=== PATIENT | female | born 1930 | race Caucasian/White ===

== ENCOUNTER 2017-12-12 08:20 | Inpatient (IN) | payer MEDICARE, OTHER ==
[~2017-12-12] VITALS: Ht 152.4 cm; Wt 53.2 kg
--- NOTE | ~2017-12-12 | OP ---
PATIENT NAME: MARIETTA JAY MEDICAL RECORD: [id number] :30 LOCATION:D.M2 D.2116 ADMISSION DATE:12/12/17 SURGEON: ELIO EUGENE MD DATE OF OPERATION: 12/13/2017 PROCEDURE: Left heart catheterization, selective coronary angiography, right femoral artery approach. We attempted radial; however, due to radial loop, unable to use this. FINDINGS: Left ventriculography, 30-degree HINDS view shows normal wall motion, normal systolic function. CORONARY ANATOMY: LEFT MAIN: The left main is free of disease. LAD: LAD is a medium to small LAD, not quite reaching the apex, about 70% stenosis in the proximal portion. CIRCUMFLEX: Ostium forked radial artery with a complex plaque at the large OM. This is a left dominant system with the circumflex being the largest vessel. RIGHT CORONARY ARTERY: Rudimentary. PLAN: Intervention of circumflex momentarily. DESCRIPTION OF PROCEDURE: A 5-South Sudanese sheath was exchanged for 6-South Sudanese sheath. EBU 3.5 guiding catheter gave good guide support. Following this, a 300-cm Whisper wire was placed across tightly occluded circumflex. We then placed a 3.0 x 50 mm [place] balloon and using this as an exchange catheter, placed a PT extra support wire. Next, predeployment balloon was used up to 12 atmospheres up and down diffuse stenosis. Stent deployed was a 3.0 x 18 mm Integrity nondrug-eluting stent up to 14 atmospheres. Final angiography shows excellent resolution of a 90% subtotal stenosis, no significant residual. BOSTON flow was 3 throughout the procedure. Integrilin was used during the case. Sheath was closed with ExoSeal device. Plavix was loaded in the lab. TRANSINT:[id number] Voice Confirmation ID: [id number] DOCUMENT ID: [id number] ELIO EUGENE MD at 1359 CC: [id number] DICTATION DATE: 12/13/17 1034 DRIER ATTENDANT: 12/13/17 1136 DIS IN 12/14/17 [facility] [address] [facility], [facility]
--- NOTE | ~2017-12-12 | HP ---
PATIENT: MARIETTA MIDDLETON MEDICAL RECORD: [id number] ACCOUNT: [id number] LOCATION:[address] : 30 ADMISSION DATE: 12/12/17 HISTORY AND PHYSICAL EXAMINATION HISTORY OF PRESENT ILLNESS: Marietta Middleton is an 87-year-old lady with no known history of coronary artery disease, had a history of chest pain, shortness of breath, presented to [place] [facility]. Most history is from daughter. Had elevated enzymes consistent with a hog-YE-odkvixnb myocardial infarction. Referred here for further evaluation. Pain free at this point. Main problems at this point some dyspnea, some orthostasis. PAST MEDICAL HISTORY: Otherwise includes history of hypertension. MEDICATIONS: Cozaar 50 every day, [place] 10/325 every day. ALLERGIES: PENICILLIN, MORPHINE, DOXYCYCLINE, PROMETHAZINE. SOCIAL HISTORY: Nonsmoker, nondrinker, lives at [place], good family support. REVIEW OF SYSTEMS: The patient reports easy bruising but reports no swollen glands. The patient reports no fever, no night sweats, no significant weight gain, no significant weight loss. No significant exercise tolerance. The patient reports no dry eyes, no irritation, no vision change. Patient reports no difficulty hearing and no ear pain. Patient reports no frequent nose bleeds or nose and sinus problems. Patient reports on arm pain on exertion. No shortness of breath while lying down. No history of heart murmur. Patient reports no cough, no wheezing or coughing up blood. Patient reports no abdominal pain, no vomiting. Normal appetite. No diarrhea and not vomiting blood. No nausea and no constipation. Patient reports no incontinence. No difficulty urinating. No hematuria. No increased frequency. Patient reports no muscle aches. No weakness, no arthralgias, no back pain. No swelling of the extremities. Patient reports no abnormal mole, no jaundice, no rashes. Reports no loss of consciousness. No weakness and no numbness. No seizures, dizziness, or headaches. The patient reports no depression, no sleep disturbance, feeling safe in a relationship and no alcohol abuse. Patient reports on fatigue. Reports no runny nose or sinus pressure. No itching, no hives, and no frequent sneezing. PHYSICAL EXAMINATION: GENERAL: Elderly female, in no acute distress. VITAL SIGNS: 120/56, pulse 71 and regular. HEENT: Normocephalic, atraumatic. NECK: No bruits noted. HEART: Regular. II/ systolic ejection murmur. LUNGS: Good air excursion. ABDOMEN: Soft, nontender. EXTREMITIES: Pulses 2+. No edema. LABORATORY DATA: ECG shows amr-IC-drexjyqjd myocardial infarction. PLAN: We will plan for diagnostic angiography and intervention based on above. TRANSINT:[id number] Voice Confirmation ID: [id number] DOCUMENT ID: [id number] HISTORY AND PHYSICAL [id number] MARIETTA MIDDLETON,ELIO Fernandez MD at 1359 CC: [id number] DICTATION DATE: 12/13/17 08 METAPHYSICS TEACHER: 12/13/17 1147 DIS IN 12/14/17 [facility] [address] [place] [address]
--- NOTE | ~2017-12-12 | HEMODYNAMI ---
PATIENT:MARIETTA JAY MEDICAL RECORD: [id number] : 30 LOCATION:[facility] D.2116 ADMISSION DATE: 12/12/17 Generatedon:12/13/201710:28 Patient name: MARIETTA JAY Patient #: [id number] SSN: : Date of study: 12/13/2017 Page: Of Hemodynamic Procedure Report Patient Data Patient Demographics Procedure consent was obtained First Name: MARIETTA Gender: Female Last Name: MISTY : 1930 Patient #: [id number] Age: 87 year(s) Race: Unknown Additional ID: [id number] Contact details Address: [place] [address] State: [place] City: [place] Zip code: [address] Past Medical History Allergies Allergen Reaction Date Comments Reported Other allergy 12/13/2017 PCN, Doxycylcline, Morphine, Phenergan Admission Admission Data Admission Date: 12/12/2017 Admission Time: 10:08 Room #: D.2116 Height (in.): 59.84 BSA: 1.51 (m2) Height (cm.): 152 BMI: 23.81 (kg/m2) Weight (lbs.): 121.25 Weight (kg.): 55 Lab Results Lab Result Date: 12/13/2017 Lab Result Time: 0:00 Biochemistry Name Units Result Min Max BUN mg/dl 13 --(--*-)-- 7 18 Creatinine mg/dl 1.1 --(--*-)-- 0.6 1.3 CBC Name Units Result Min Max Hemoglobin g/dl 13.6 --(*---)-- 13.5 17.5 Procedure Procedure Types Cath Procedure Diagnostic Procedure LHC LH w/Coronaries Sedation Charges Moderate Sedation up to 30 minutes PCI Procedure Coronary Stent Coronary Stent Initial Procedure Description Procedure Date Procedure Date: 12/13/2017 Procedure Start Time: 9:54 Procedure End Time: 10:26 Procedure Staff Name Function Juan Mccann MD Performing Physician Mary CABRAL Monitor Thelma Vences RN Nurse Bao Lott RT Scrub Procedure Data Cath Procedure Fluoroscopy Diagnostic fluoroscopy Total fluoroscopy Time: 7.3 time: 7.3 min min Diagnostic fluoroscopy Total fluoroscopy dose: 744 dose: 744 mGy mGy Contrast Material Contrast Material Type Amount (ml) Isovue 300 119 Entry Location Entry Primary Successful Side Size Upsize Upsize Entry Closure Juan ccessful Closure Location (Fr) 1 (Fr) 2 (Fr) Remarks Device Remarks Radial Right 6 Fr Mechanical tr artery Short Compression Femoral Right 5 Fr 6 Fr Exoseal artery Short Estimated blood loss: 10 ml Diagnostic catheters Device Type Used For End Catheter Placement DIAGNOSTIC [place] 110cm 5 Procedure Fr catheter ([id number]) MULTIPACK JL 4.0 5Fr Procedure catheter MULTIPACK 3DRC 5Fr Procedure catheter MULTIPACK Pigtail 5 Fr Procedure catheter Procedure Complications No complications Procedure Medications Medication Administration Route Dosage Oxygen NC 2 l/min Lidocaine 2% added to field 20 Heparin Flush Bag added to field 2 bags (1000units/500ml NS) 0.9% NaCl I.V. 100 ml/hr Radial Cocktail I.A. 1 syringe (Verapomil 2mg/Nitro 400mcg/Heparin 1500units) Versed I.V. 1 mg Fentanyl I.V. 50 mcg Versed I.V. 1 mg Fentanyl I.V. 50 mcg Heparin Bolus I.V. 4000 units Integrilin (Bolus I.V. 5 ml 2mg/ml) Plavix P.O. 600 mg Hemodynamics Rest BSA: 1.51 (m2) HGB: 13.6 (g/dl) O2 Consumption: Estimated: 130.67 (ml/min) O2 Co nsumption indexed: Estimated:86.54 (ml/min/m) Heart Rate: 65 (bpm) Pressure Samples Time Site Value (mmHg) Purpose Heart Use Rate(bpm) 10:08 LV 123/0,1 Snapshot 79 10:08 LV 120/-32,1 Snapshot 79 10:08 AO 94/47(70) Pullback 80 10:08 LV 99/11,18 Pullback 80 Gradients Valve Time Site 1 Site 2 Mean SEP/DFP Peak To Heart Use (mmHg) (sec/min) Peak Rate (mmHg) (bpm) Aortic 10:08 LV AO 6 13 5 80 99/11,18 94/47(70) Calculations Valve P-P Mean Valve Index Valve Source Name Gradient Area Flow (cm2) Aortic 5 6 5 6 Snapshots Pre Cath Intra NCS Post Cath Vital Signs Time Heart Resp SPO2 etCO2 NIBP Rhythm Pain Sedation Rate (ipm) (%) (mmHg) (mmHg) Status Level (bpm) 9:23:04 63 16 99 0 161/58(94) NSR 0 (11) 10(A) , No pain 9:27:30 69 15 100 0 151/57(98) NSR 0 (11) 10(A) , No pain 9:31:53 60 13 99 0 114/56(85) NSR 0 (11) 10(A) , No pain 9:36:00 66 16 98 0 118/56(73) NSR 0 (11) 10(A) , No pain 9:40:16 73 16 99 0 116/43(73) NSR 0 (11) 10(A) , No pain 9:44:22 60 18 99 0 122/65(91) NSR 0 (11) 10(A) , No pain 9:48:32 68 21 99 0 114/61(82) NSR 0 (11) 10(A) , No pain 9:53:54 67 18 98 0 106/48(79) NSR 0 (11) 10(A) , No pain 9:59:05 81 16 95 0 92/55(69) NSR 0 (11) 9(A) , No pain 10:03:09 76 16 93 0 104/47(73) NSR 0 (11) 9(A) , No pain 10:07:14 76 16 94 0 85/53(74) NSR 0 (11) 9(A) , No pain 10:11:16 76 15 94 0 102/46(75) NSR 0 (11) 9(A) , No pain 10:15:24 80 17 94 0 116/48(79) NSR 0 (11) 9(A) , No pain 10:19:32 81 15 97 0 134/60(88) NSR 0 (11) 10(A) , No pain 10:23:46 79 15 99 0 145/63(93) NSR 0 (11) 10(A) , No pain Medications Time Medication Route Dose Verified Delivered Reason Note s Effectiveness by by 9:26:12 Oxygen NC 2 l/min Juan Renee used for [facility] Slim Vences RN procedure 9:26:18 Lidocaine 2% added 20ml Juan Martinez for local to vial [facility] anesthetic field MD BAXTER 9:26:24 Heparin Flush added 2 bags Juan Martinez used for Bag to [facility] procedure (1000units/500ml field MD BAXTER NS) 9:26:32 0.9% NaCl I.V. 100 Juan Renee Per physician ml/hr [facility] Slim Vences RN, MD 9:30:09 Radial Cocktail I.A. 1 Juan Martinez for (Verapomil syringe [facility] anticoagulation 2mg/Nitro MD BAXTER 400mcg/Heparin 1500units) 9:53:26 Versed I.V. 1 mg Juan Renee for sedation [facility] Slim Vences RN, MD 9:53:32 Fentanyl I.V. 50 mcg Juan Renee for sedation [facility] Slim Vences RN, MD 10:07:07 Versed I.V. 1 mg Juan Renee for sedation St Slim Vences RN, MD 10:07:11 Fentanyl I.V. 50 mcg Juan Renee for sedation [facility] Slim Vences RN, MD 10:10:38 Heparin Bolus I.V. 4000 Juan Renee for veri fied units [facility] Slim Vences RN anticoagulation with dr MD ibanez 10:12:28 Integrilin I.V. 5 ml Juan Renee for Wast ed 5 (Bolus 2mg/ml) [facility] Slim Vences RN antiplatelet ml of MD therapy vial 10:26:04 Plavix P.O. 600 mg Juan Renee for [facility] Slim Vences RN antiplatelet therapy Procedure Log Time Note 8:52:18 Patient Height : 59.84 inches 8:52:23 Patient Weight : 121.25 lbs 8:53:20 Lab Result : Creatinine 1.1 mg/dl 8:53:20 Lab Result : BUN 13 mg/dl 8:53:20 Lab Result : Hemoglobin 13.6 g/dl 8:53:53 Diagnostic Cath status Elective 8:53:55 Thelma Vences RN sent for patient. Start room use. 8:53:57 Time tracking: Regular hours (M-F 7:00 - 5:00) 8:54:03 Plan of Care:Hemodynamics will remain stable., Cardiac rhythm will remain stable., Comfort level will be maintained., Respiratory function will remain adequate., Patient/ family verbilizes understanding of procedure., Procedure tolerated without complication., Recovers from procedure without complications.. 9:18:09 Patient received from Med II to CCL 2 Alert and oriented. Tansferred to table in Supine position. 9:18:10 Warm blankets applied, and lukasz hugger turned on for patient comfort. 9:18:11 Correct patient and procedure confirmed by team. 9:18:12 Signed procedure consent form obtained from patient. 9:18:12 ECG and BP/O2 sat monitors applied to patient. 9:19:15 H&P Date Dictated: 12/12/2017 Within 30 days and on chart., H&P Addendum completed by physician on day of procedure. (MUST COMPLETE FOR ALL OUTPATIENTS). 9:19:19 Pre-procedure instructions explained to patient. 9:19:23 Pre-op teaching completed and patient verbalized understanding. 9:19:29 Family in patients room. 9:19:31 Patient NPO since Midnight. 9:20:03 Patient allergic to Other allergyPCN, Doxycylcline, Morphine, Phenergan 9:20:06 Is the patient allergic to Iodine/contrast media? No. 9:20:08 Was the patient premedicated? Yes 9:20:09 Is patient on blood thinner?No 9:20:11 Patient diabetic? No. 9:20:18 Snore? No 9:20:20 Sleep apnea? No 9:20:27 Dentures? Yes in tight 9:20:32 Patient pain scale 0/10 ?. 9:21:08 IV started by Thelma Vences RN inleft forearm with a 22 gauge IV catheter with 0.9% NaCl at KVO. 9:21:28 IV right forearm D/C'd due to infiltration. 9:21:34 Lab results completed and on chart. 9:21:39 Right Radial & Right Groin area was prepped with chlora-prep and draped in sterile fashion 9:21:40 Alarms reviewed by R. N. 9:21:41 Sharps counted by scrub and verified by R.N. 9:21:43 Physician paged 9:21:52 Vital chart was started 9:21:54 Baseline sample Acquired. 9:22:05 Rhythm: sinus rhythm 9:22:07 Full Disclosure recording started 9:26:12 Oxygen 2 l/min NC was administered by Thelma Vences RN; used for procedure; 9:26:18 Lidocaine 2% 20ml vial added to field was administered by Juan Mccann MD; for local anesthetic; 9:26:24 Heparin Flush Bag (1000units/500ml NS) 2 bags added to field was administered by Juan Mccann MD; used for procedure; 9:26:32 0.9% NaCl 100 ml/hr I.V. was administered by Thelma Vences RN; Per physician; 9:30:09 Radial Cocktail (Verapomil 2mg/Nitro 400mcg/Heparin 1500units) 1 syringe I.A. was administered by Juan Mccann MD; for anticoagulation; 9:39:23 Use device set Femoral Dx 9:39:25 ACIST Syringe (16034) opened to sterile field. 9:39:25 Bag Decanter (2002S) opened to sterile field. 9:39:26 Medline Cath Pack ([id number]) opened to sterile field. 9:39:26 DIAGNOSTIC WIRE .035 260cm J wire (371666) opened to sterile field. 9:39:28 ACIST Hand Control (00521) opened to sterile field. 9:39:29 ACIST Manifold (76932) opened to sterile field. 9:39:29 DIAGNOSTIC Multipack 5Fr catheter set (XG2130) opened to sterile field. 9:39:30 Tegaderm 4 x 4 (1626W) opened to sterile field. 9:39:55 SHEATH 6Fr Prelude ([id number]) opened to sterile field. 9:47:40 Zero performed for pressure channel P1 9:52:43 Physician arrived 9:52:44 --------ALL STOP TIME OUT------ 9:52:45 Final Timeout: patient, procedure, and site verified with staff and physician. All members of the team are in agreement. 9:52:48 Right Radial & Right Groin site verified by team. 9:52:52 Physical assessment completed. ASA score P 2 - A patient with mild systemic disease as per Juan Mccann MD. 9:52:59 Sedation plan: IV Moderate Sedation Medication:Versed, Fentanyl 9:53:26 Versed 1 mg I.V. was administered by Thelma Vences RN; for sedation; 9:53:32 Fentanyl 50 mcg I.V. was administered by Thelma Vences RN; for sedation; 9:54:18 Procedure started. 9:54:33 Local anesthetic to right radial artery with Lidocaine 2% by Juan Mccann MD.INITIAL ACCESS ONLY 9:54:48 A 6 Fr Short sheath was inserted into the Right Radial artery 9:58:09 A DIAGNOSTIC [place] 110cm 5 Fr catheter (080976) was advanced over the wire and used for Procedure. 10:01:32 Catheter removed. 10:01:48 No radial 10:02:06 SHEATH Prelude 5Fr 0.035 (MXG-7O-60-035) opened to sterile field. 10:03:09 A 5 Fr sheath was inserted into the Right Femoral artery 10:03:32 A MULTIPACK JL 4.0 5Fr catheter was advanced over the wire and used for Procedure. 10:03:37 LCA angiography performed. 10:07:07 Versed 1 mg I.V. was administered by Thelma Vences RN; for sedation; 10:07:11 Fentanyl 50 mcg I.V. was administered by Thelma Vences RN; for sedation; 10:07:27 WHISPER 300cm guide wire ([id number]) opened to sterile field. 10:07:37 INFLATOR Merit BasixCompak (DS9200) opened to sterile field. 10:08:34 A MULTIPACK 3DRC 5Fr catheter was advanced over the wire and used for Procedure. 10:08:50 Catheter removed. 10:08:57 A MULTIPACK Pigtail 5 Fr catheter was advanced over the wire and used for Procedure. 10:09:03 LV gram done using HINDS 10:09:35 EF : 55 % 10:09:39 PERCUTANEOUS ENTRY 19GA needle opened to sterile field. 10:09:51 Catheter removed. 10:09:52 Proceeding to intervention. 10:10:17 Sheath upsized to a 6 Fr Short. 10:10:38 Heparin Bolus 4000 units I.V. was administered by Thelma Vences RN; for anticoagulation; verified with dr ibanez 10:10:50 6 Fr XBLAD 3.58 guide catheter was inserted over the wire 10:11:02 GUIDE 6FR XBLAD 3.5 catheter ([id number]) opened to sterile field. 10:11:18 Whisper wire advanced. 10:12:28 Integrilin (Bolus 2mg/ml) 5 ml I.V. was administered by Thelma Vences RN; for antiplatelet therapy; Wasted 5 ml of vial 10:13:14 Wire advanced across lesion. 10:15:02 CHOICE PT Extra Support J 300cm guide wire ([id number]) opened to sterile field. 10:15:19 Inflate balloon Inflation number: 1 A EMERGE OTW 3.0 x 15 balloon ([id number]) was prepped and advanced across the 1st Ob Judy, then inflated to 12 ROGELIO for 0:22 (min:sec). 10:15:46 Inflation number: 2 The EMERGE OTW 3.0 x 15 balloon ([id number]) was reinflated across the 1st Ob Judy, to 12 ROGELIO for 0:13 (min:sec). 10:16:17 Inflation number: 3 The EMERGE OTW 3.0 x 15 balloon ([id number]) was reinflated across the 1st Ob Judy, to 14 ROGELIO for 0:18 (min:sec). 10:17:49 Balloon removed over the wire. 10:19:15 Place stent Inflation Number: 4 A INTEGRITY OTW 3.0 X 18 stent ([id number]) was prepped and advanced across the 1st Ob Judy. The stent was deployed at 14 ROGELIO for 0:25 (min:sec). 10:21:21 Wire removed. 10:21:22 Guide catheter removed. 10:21:46 Sheath removed intact; hemostasis achieved with Exoseal to the Right Femoral artery. 10:22:02 Sheath removed intact; hemostasis achieved with Mechanical Compression to the Right Radial artery. 10:22:05 Procedure ended.(Physican Out) 10:22:19 Fluoroscopy time 07.30 minutes. 10::23 Flurop Dose total: 744 10:22:23 Fluoroscopy dose: 744 mGy 10:22:30 Contrast amount:Isovue 300 119ml. 10:22:32 Sharps counted by scrub and verified by R.N. 10:22:34 Insertion/operative site no bleeding no hematoma. 10:22:44 Post right femoral artery:stable 10:22:50 Post right radial artery:stable 10:22:52 Post Procedure Pulses reassessed and unchanged 10:22:59 Post-procedure physical assessment completed. ASA score P 2 - A patient with mild systemic disease as per Juan Mccann MD. 10:23:06 Post procedure rhythm: unchanged. 10:23:37 Estimated blood loss: 10 ml 10:23:39 Post procedure instruction explained to patient.Patient verbalizes understanding. 10:24:13 Procedure type changed to Cath procedure, Diagnostic procedure, LHC, LHC w/Coronaries, Sedation Charges, Moderate Sedation up to 30 minutes, PCI procedure, Coronary Stent, Coronary Stent Initial 10:24:47 Procedure and supply charges have been captured, reviewed, submitted and are correct. 10:26:04 Plavix 600 mg P.O. was administered by Thelma Vences RN; for antiplatelet therapy; 10::13 Procedure Complication : No complications 10:26:15 Vital chart was stopped 10:26:17 See physician's report for complete and final results. 10:26:21 Patient transfered to [facility] with Bed. 10::24 Procedure ended. 10::24 Full Disclosure recording stopped 10::37 End room use (Document Last) Intervention Summary Intervention Notes Time ActionType Lesion and Equipment Action# Pressure Duration Attributes Used 10:15:19 Inflate 1st Ob Judy EMERGE OTW 1 12 00:22 balloon 3.0 x 15 balloon ([id number]) 10:15:46 Reinflate 1st Ob Judy EMERGE OTW 2 12 00:13 balloon 3.0 x 15 balloon ([id number]) 10:16:17 Reinflate 1st Ob Judy EMERGE OTW 3 14 00:18 balloon 3.0 x 15 balloon ([id number]) 10:19:15 Place stent 1st Ob Judy INTEGRITY 4 14 00:25 OTW 3.0 X 18 stent ([id number]) Device Usage Item Name Manufacture Quantity Catalog Number Hospital Part Current Minimal Lot# / Charge Number Stock Stock Serial# Code ACIST Syringe Acist 1 96721 426301 334645 947996 20 (69532) [employer] Bag Decanter Microtek 1 2001S 163257 52186 060666 5 () Medical Inc. Medline Cath Cardinal 1 [id number] 129052 35163 011763 5 [facility] ([id number]) DIAGNOSTIC WIRE [facility] [place] 1 531972 156784 561897 053231 30 .035 260cm J wire (435512) ACIST Hand Acist 1 51857 710770 597022 206144 5 Control (53695) [employer] ACIST Manifold Acist 1 29660 009853 340578 532158 5 (56314) [employer] Inc DIAGNOSTIC Cardinal 1 XY4136 592562 33630 015423 30 Multipack 5Fr Health catheter set (CF4229) Tegaderm 4 x 4 3M 1 1626W 860449 097596 437522 5 (1626W) SHEATH 6Fr Merit 1 [id number] 383710 775824 829822 5 Prelude Medical ([id number]) DIAGNOSTIC Terumo 1 40-5013 276702 157671 353629 5 [place] 110cm 5 Fr catheter (856646) SHEATH Prelude Merit 1 OYL-0H-00-035 897484 979278 397573 5 5Fr 0.035 Medical (XOS-2A-88-035) MULTIPACK JL Cardinal 1 485375 5 4.0 5Fr Health catheter WHISPER 300cm Ricardo 1 [id number] 772770 336439 427183 5 guide wire Vascular ([id number]) INFLATOR Merit Merit 1 OM8847 187118 517131 627745 15 Sequella ([id number]) MULTIPACK 3DRC Cardinal 1 399995 5 5Fr catheter Health MULTIPACK Cardinal 1 044767 5 Pigtail 5 Fr Health catheter PERCUTANEOUS [facility] 1 E87662 159378 028837 5 ENTRY 19GA needle GUIDE 6FR XBLAD Cardinal 1 [id number] 786661 910005 003749 10 3.5 catheter Health ([id number]) CHOICE PT Extra [place] 1 [id number] 923600 409373 713815 5 Support J 300cm Scientific guide wire ([id number]) EMERGE OTW 3.0 [place] 1 [id number] 914572 624232 611576 5 [id number] x 15 balloon Scientific ([id number]) INTEGRITY OTW Medtronic 1 [id number] 395547 630561 4 [id number] 3.0 X 18 stent ([id number]) Signature Audit [place] Stage Time Signature Unsigned Intra-Procedure 12/13/2017 Mary Matos 10:28:35 AM RT(R) Signatures Monitor : Mary Matos Signature : RT Date : Time : [facility] [address] [place] [address]
[2017-12-12 12:13] VITALS: BP 179/68
[2017-12-12 13:16] VITALS: BP 179/68; Ht 152.4 cm; Wt 53.2 kg
[2017-12-12] MEDS ORDERED: HYDROCODONE-APA1 TAB PO (13:36)
[2017-12-12] MEDS ORDERED: COZAAR50 MG PO (13:36)
[2017-12-12 14:09] LABS: ALBUMIN 3.7 g/dL (3.4-5.0); ALKALINE PHOSPHATASE 78 U/L (46-116); ALT (SGPT) 15 U/L (10-68); BILIRUBIN - TOTAL 0.47 mg/dL (0.2-1.3); CALC OSMOLALITY 280 mosm/kg (275-300); CHLORIDE - SERUM 104 mmol/L (98-107); CREATININE - SERUM 1.1 mg/dL (0.6-1.3); GLUCOSE 104 mg/dL (74-106); POTASSIUM - SERUM 4.2 mmol/L (3.5-5.1); PROTEIN - SERUM 7.5 g/dL (6.4-8.2); SODIUM 141 mmol/L (136-145); UREA NITROGEN 13 mg/dL (7-18); eGFR NON AFRICAN AMERICAN 50 mL/min (90-120)
[2017-12-12 14:22] LABS: CREATINE KINASE 94 UL (21-215)
[2017-12-12 15:11] LABS: BASOPHILS 1.1 % (0-2); EOSINOPHILS 3.1 % (0-7); HEMATOCRIT 39.1 % (36.0-48.0); HEMOGLOBIN 13.6 g/dL (12-16); LYMPHOCYTES 26.2 % (15-50); MCH 30.6 pg (26.0-34.0); MCHC 34.8 g/dL (31.0-37.0); MCV 88.1 fL (80.0-100.0); MEAN PLATELET VOLUME 10.6 fL (7.4-10.4); MONOCYTES 21.8 % (2-11); NEUTROPHILS 47.8 % (40-80); PLATELET COUNT 277 10x3/uL (130-400); RBC 4.44 10x6/uL (4.00-5.40); WBC 5.2 10x3/uL (4.8-10.8)
[2017-12-12 16:32] VITALS: BP 115/67
[2017-12-12 20:28] LABS: CKMB 1.5 U/L (0.0-3.6); CREATINE KINASE 97 UL (21-215); TROPONIN-I 0.031 ng/mL (0.000-0.060)
[2017-12-12 21:34] VITALS: BP 109/42
[2017-12-13 01:32] VITALS: BP 112/44
[2017-12-13 02:59] LABS: CKMB 1.2 U/L (0.0-3.6); CREATINE KINASE 89 UL (21-215); TROPONIN-I 0.031 ng/mL (0.000-0.060)
[2017-12-13 07:09] VITALS: BP 138/55
[2017-12-13 07:57] VITALS: BP 123/56
[2017-12-13 08:36] LABS: BASOPHILS 1.1 % (0-2); EOSINOPHILS 7.8 % (0-7); HEMATOCRIT 37.7 % (36.0-48.0); IMMATURE GRANULOCYTES 0.2 % (0-5); LYMPHOCYTES 29.1 % (15-50); MCH 30.7 pg (26.0-34.0); MCHC 34.5 g/dL (31.0-37.0); MCV 89.1 fL (80.0-100.0); MEAN PLATELET VOLUME 11.1 fL (7.4-10.4); MONOCYTES 23.4 % (2-11); NEUTROPHILS 38.4 % (40-80); PLATELET COUNT 272 10x3/uL (130-400); RBC 4.23 10x6/uL (4.00-5.40); RDW 14.5 % (11.5-14.5); WBC 4.4 10x3/uL (4.8-10.8)
[2017-12-13 08:52] LABS: ANION GAP 14.6 mmol/L (8-16); CALCIUM 8.8 mg/dL (8.5-10.1); CARBON DIOXIDE 25.7 mmol/L (21.0-32.0); CREATININE - SERUM 1.2 mg/dL (0.6-1.3); POTASSIUM - SERUM 4.3 mmol/L (3.5-5.1)
[2017-12-13 11:13] VITALS: BP 123/56; BP 145/93
[2017-12-13 13:22] LABS: CHOL - HDL RATIO 2.5 ratio (2.3-4.1); LDL-HDL RATIO 1.1 ratio (1.5-3.5)
[2017-12-13 15:16] VITALS: BP 142/61
[2017-12-13 20:18] VITALS: BP 156/61
[2017-12-14 00:39] VITALS: BP 119/71
[2017-12-14 06:11] VITALS: BP 169/73
[2017-12-14 06:35] LABS: HEMATOCRIT 37.7 % (36.0-48.0); MCH 30.2 pg (26.0-34.0); MCHC 34.5 g/dL (31.0-37.0); MCV 87.7 fL (80.0-100.0); MEAN PLATELET VOLUME 10.4 fL (7.4-10.4); PLATELET COUNT 255 10x3/uL (130-400); RDW 14.2 % (11.5-14.5)
[2017-12-14 06:36] LABS: WBC 5.6 10x3/uL (4.8-10.8)
[2017-12-14 07:07] LABS: ANION GAP 14.9 mmol/L (8-16); CALCIUM 8.5 mg/dL (8.5-10.1); CARBON DIOXIDE 25.4 mmol/L (21.0-32.0); CHOL - HDL RATIO 2.4 ratio (2.3-4.1); CREATININE - SERUM 1.2 mg/dL (0.6-1.3); LDL-HDL RATIO 1.1 ratio (1.5-3.5); POTASSIUM - SERUM 4.3 mmol/L (3.5-5.1)
[2017-12-14 08:05] LABS: ANISOCYTOSIS OCC; EOSINOPHILS 2 % (0-7); LYMPHOCYTES 24 % (15-50); MONOCYTES 22 % (2-11); NEUTROPHILS 51 % (40-80); PLATELET ESTIMATE NORMAL; ROULEAUX 1+
[2017-12-14 08:17] VITALS: BP 169/55
[2017-12-14] MEDS ORDERED: PROTONIX40 MG PO (10:01)
[2017-12-14] MEDS ORDERED: ASPIRIN325 MG PO (10:01)
[2017-12-14] MEDS ORDERED: PLAVIX75 MG PO (10:01)
[2017-12-14 11:43] VITALS: BP 118/56
== END 2017-12-14 13:04 | disposition home health service (06) | DRG 249 ==
LOC: D.M2 08:20
PROVIDERS: Emergency Medicine; Internal Medicine Interventional Cardiology; Internal Medicine Nephrology
PROC: 02703DZ Dilation of Coronary Artery, One Artery with Intraluminal Device, Percutaneous Approach (ICD-10-PCS; principal; 2017-12-14)
PROC: 4A023N7 Measurement of Cardiac Sampling and Pressure, Left Heart, Percutaneous Approach (ICD-10-PCS; 2017-12-14)
PROC: B2111ZZ Fluoroscopy of Multiple Coronary Arteries using Low Osmolar Contrast (ICD-10-PCS; 2017-12-14)
PROC: B2151ZZ Fluoroscopy of Left Heart using Low Osmolar Contrast (ICD-10-PCS; 2017-12-14)
DX: I21.4 Non-ST elevation (NSTEMI) myocardial infarction (principal); I10 Essential (primary) hypertension